=== PATIENT | male | born 1930 | race Caucasian/White ===

== ENCOUNTER 2019-10-06 09:01 | Inpatient (IN) ==
--- NOTE | 2019-10-03 10:11 | Anesthesiology Consultation ---
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 Consults Requested none History Surgery Operation Date: 10/06/19 10:00 Proposed Procedures p Esophagogastroduodenoscopy Dr Easley - Jennifer Easley MD Height/Weight Height: 5 ft 2 in Weight: 42.638 kg Allergies Allergy/AdvReac Type Severity Reaction Status Date / Time No Known Allergies Allergy Verified 10/06/19 09:22 Medications Home Medications Medication Instructions Recorded Confirmed Last Taken levothyroxine 50 mcg PO QAM 10/03/19 10/06/19 10/05/19 multivitamin 1 tab PO QPM 10/03/19 10/06/19 10/05/19 Past Medical History Medical History Arthritis Hypothyroidism Past Surgical History Surgical History No history of previous surgery Social History Smoking Status: Former smoker Do You Dip or Chew Tobacco: No (QUIT) Smoking End Date: QUIT 30 YRS AGO Hx Alcohol Use: Yes Alcohol type: beer alcohol intake frequency: holidays/special occasions only Hx Substance Use: No Physical Exam Vital Signs Last Vital Signs Temp 36.8 C 10/06/19 09:24 Pulse 63 10/06/19 09:24 Resp 16 10/06/19 09:24 BP 139/75 10/06/19 09:24 Pulse Ox 99 10/06/19 09:24
[2019-10-06] MEDS ORDERED: ePHEDrine sulfate 50 MG/ML AMP IV PRN (10:07)
[2019-10-06] MEDS ORDERED: ATROPINE SULFATE 0.1 MG/ML 10ML SYR IV PRN (10:07)
--- NOTE | 2019-10-06 10:07 | History & Physical Report ---
Date of Service October 06, 2019 Assessment & Plan (1) Encounter for pre-operative examination: History of Present Illness Primary Care Provider: Santiago Mooney MD Abnormal CT scan suspicious for esophageal cancer Allergies Allergy/AdvReac Type Severity Reaction Status Date / Time No Known Allergies Allergy Verified 10/06/19 09:22 Home Medications Home Medications Medication Instructions Recorded Confirmed Type levothyroxine 50 mcg PO QAM 10/03/19 10/06/19 History multivitamin 1 tab PO QPM 10/03/19 10/06/19 History Past Med/Surg History Medical History Arthritis Hypothyroidism Surgical History No history of previous surgery Social History Preferred Language: Albanian Communication Ability: Effective 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 Required: No Beliefs That Will Affect Care: None Current Living Situation: Alone Other Information That Helps Us Care for You: No Feels Safe at Home: Yes Smoking Status: Former smoker Do You Dip or Chew Tobacco: No (QUIT) ; Smoking End Date: QUIT 30 YRS AGO ; Second Hand Exposure: Yes (OVER THE YRS) ; Hx Alcohol Use: Yes Alcohol type: beer Hx Substance Use: No Review of Systems All systems reviewed & are unremarkable except as noted in HPI & below Physical Exam Constitutional: comfortable; no acute distress Respiratory: normal respiratory effort, lungs clear to auscultation Cardiovascular: RRR, no murmur, no edema Gastrointestinal (Abdomen): normal bowel sounds, soft, nontender, no hepatosplenomegaly Results & Data Vital Signs (Past 12 Hours) Vital Signs Temp Pulse Resp BP Pulse Ox 10/06/19 09:24 36.8 C 63 16 139/75 99
--- NOTE | 2019-10-06 11:24 | Anesthesiology Progress Note ---
Date of Service October 06, 2019 Anesthesia Post Procedure Vital Signs Vital Signs: Temp Pulse Resp BP Pulse Ox 10/06/19 11:13 65 16 159/77 H 100 10/06/19 10:58 63 16 143/76 H 100 10/06/19 10:43 64 16 129/68 100 10/06/19 09:24 36.8 C 63 16 139/75 99 Transfer of Care Handoff Completed per policy Notes Mental Status: alert / awake / arousable Patient Amnestic to Procedure: Yes Nausea / Vomiting: adequately controlled Pain: adequately controlled Airway Patency, RR, SpO2: stable & adequate BP & HR: stable & adequate Hydration State: stable & adequate Anesthetic Complications: no major complications apparent and Pt Satisfied with anesthetic care
--- NOTE | 2019-10-06 11:33 | Gastrointestinal Consultation ---
Date of Consultation October 06, 2019 Assessment & Plan (1) Esophageal mass: 89 year old male w/ weight loss, CTAP concerning for mural thickening of the distal esophagus w/ adjacent adenopathy, concerning for esophageal carcinoma s/p EGD w/ visualization of obstructive eso mass Admit for further workup Clear liquids today NPO after midnight EGD in the OR 10/07/19 for esophgeal stent +/- PEG Thank you for allowing us to participate in the care of this patient. Please call with any acute changes, questions or concerns. Please see addendum below with additional recommendation from my supervising physician. Supervising Physician Co-Signing Physician Notes I performed a history and physical examination of the patient, including specifically on physical exam - soft, nontender abdomen. I have discussed the patient's management with Renee. Please refer to the nurse practitioner's note for the documented findings and plan of care. EGD showed esophageal mass with bleeding and obstruction, biopsied. He will benefit from an esophageal stent and possible PEG as he also has narrowing of his UES. I spoke to patient and his daughter and they agreed. Plan for EGD tomorrow. History of Present Illness Reason for Consultation: eso mass Requesting Physician: Tracee Attending Physician: Jennifer Easley MD History of Present Illness 89 year old male with history of CKD, hypothyroidism presenting for open access EGD today for abnormal CT scan concerning for irregular mural thickening of the distal esophagus adjacent adenopathy, concerning for esophageal carcinoma, gastrohepatic mass concerning for a necrotic lymph node measuring up to 5.0 centimeters in greatest diameter. He had noted a weight loss and vague UGI concerns. EGD today w/ obstructive esophageal mass. Allergies Allergy/AdvReac Type Severity Reaction Status Date / Time No Known Allergies Allergy Verified 10/06/19 09:22 Home Medications Home Medications Medication Instructions Recorded Confirmed Type levothyroxine 50 mcg PO QAM 10/03/19 10/06/19 History multivitamin 1 tab PO QPM 10/03/19 10/06/19 History Patient History Medical History (Updated 10/06/19 @ 11:31 by Renee Perez) Arthritis Esophageal mass Hypothyroidism Surgical History No history of previous surgery Social History Preferred Language: Maltese Communication Ability: Effective Sane Rn Required: No Beliefs That Will Affect Care: None Current Living Situation: Alone Other Information That Helps Us Care for You: No Feels Safe at Home: Yes Smoking Status: Former smoker Do You Dip or Chew Tobacco: No (QUIT) ; Smoking End Date: QUIT 30 YRS AGO ; Second Hand Exposure: Yes (OVER THE YRS) ; Hx Alcohol Use: Yes Alcohol type: beer Hx Substance Use: No Review of Systems Constitutional: no fever and no chills Respiratory: no cough Cardiovascular: no chest pain Gastrointestinal: no abdominal pain, no nausea and no vomiting Physical Exam Constitutional: well developed and well nourished; no acute distress Respiratory: normal respiratory effort; no respiratory distress Gastrointestinal (Abdomen): Percussion/Palpation: abdomen soft Skin: no rashes, warm and dry Results & Data Vital Signs (Past 12 Hours) Vital Signs Temp Pulse Resp BP Pulse Ox 10/06/19 11:13 65 16 159/77 H 100 10/06/19 10:58 63 16 143/76 H 100 10/06/19 10:43 64 16 129/68 100 10/06/19 09:24 36.8 C 63 16 139/75 99
[2019-10-06] MEDS ORDERED: ONDANSETRON INJ 2 MG/ML 2 ML VIAL IV PRN (11:43)
[2019-10-06] MEDS ORDERED: ACETAMINOPHEN 325 MG TAB PO PRN (11:43)
[2019-10-06] MEDS ORDERED: ALUMINUM/MAGNESIUM SUSP 30 ML UDC PO PRN (11:43)
[2019-10-06] MEDS ORDERED: POLYETHYLENE (MIRALAX) 17 GM PACK PO PRN (11:43)
[2019-10-06] MEDS ORDERED: MAGNESIUM HYDROXIDE SUSP 30 ML UDC PO PRN (11:43)
--- NOTE | 2019-10-06 11:44 | GI REPORT ---
Patient Name: Krunal Ta Procedure Date: 10/06/2019 10:04 AM Date of : 1930 Admit Type: Outpatient Age: 89 Gender: Male Attending MD: Jennifer Easley MD Procedure: Upper GI endoscopy Providers: Jennifer Easley MD Referring MD: Santiago Dalton Indications: Dysphagia, Weight loss Medicines: Propofol per Anesthesia Complications: No immediate complications. Estimated Blood Loss: Estimated blood loss: none. Procedure: Pre-Anesthesia Assessment: - Prior to the procedure, a History and Physical was performed, and patient medications, allergies and sensitivities were reviewed. The patient's tolerance of previous anesthesia was reviewed. - The risks and benefits of the procedure and the sedation options and risks were discussed with the patient. All questions were answered and informed consent was obtained. - Patient identification and proposed procedure were verified prior to the procedure by the physician and the nurse. The procedure was verified in the procedure room. - Pre-procedure physical examination revealed no contraindications to sedation. After obtaining informed consent, the endoscope was passed under direct vision. Throughout the procedure, the patient's blood pressure, pulse, and oxygen saturations were monitored continuously. The Scope was introduced through the mouth, and advanced to the second part of duodenum. The upper GI endoscopy was accomplished without difficulty. The patient tolerated the procedure well. Findings: Narrowing of the UES and the regular adult gastroscope could not pass. The stenosis was traversed after downsizing scope and using XP scope. The Z-line was found 39 cm from the incisors. A large, fungating and ulcerating mass with spontaneous bleeding was found in the lower third of the esophagus, 31 to 39 cm from the incisors. The mass was completely obstructing and circumferential. Biopsies were taken with a cold forceps for histology. Verification of patient identification for the specimen was done by the physician using the patient's name and date. The entire examined stomach was normal. The tumor does not involve the cardia. The duodenal bulb and second portion of the duodenum were normal. 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 Biopsied. - Narrowing of the UES area. Only XP scope can pass. - Z-line, 39 cm from the incisors. - Normal stomach. - Normal duodenal bulb and second portion of the duodenum. Recommendation: - I will discuss with family to admit the patient and plan for Esophageal stent placement +/- PEG tomorrow as this is a high risk for bleeding type of tumor and patient has dehydration and FTT. There is LN involvement on CT scan. Would not be able to perform EUS due to severe stenosis. Overall, patient does not seem to be a candidate for surgery or advanced chemotherapy. - Clear liquid diet. - Await pathology results. - Return to referring physician. Jennifer Easley MD 10/06/2019 11:43:56 AM This report has been signed electronically. Note Initiated On: 10/06/2019 10:04 AM Number of Addenda: 0 I attest to the content of the Intraoperative Record and orders documented therein, exceptions below {[id number]}
[2019-10-06 14:00] LABS: Basophils # (auto) 0.05 K/uL (0-0.2); Basophils % (auto) 0.4 %; Eosinophils # (auto) 0.12 K/uL (0-0.5); Hematocrit (blood only) 25.8 % (42-52); Hemoglobin 8.5 g/dL (14.0-18.0); Immature Granulocytes # (auto) 0.02 K/uL (0.00-0.02); Immature Granulocytes % (auto) 0.2 %; Lymphocytes # (auto) 4.67 K/uL (1.2-3.4); Lymphocytes % (auto) 39.7 %; Mean Corpuscular Hgb Conc 32.9 g/dL (32-36); Mean Corpuscular Volume 91.2 fL (80-100); Mean Platelet Volume 8.2 fL (7.4-10.4); Monocytes # (auto) 0.98 K/uL (0.11-0.59); Monocytes % (auto) 8.3 %; Neutrophils # (auto) 5.92 K/uL (1.4-6.5); Neutrophils % (auto) 50.4 %; Platelet Count 317 K/uL (130-400); RDW Coefficient of Variation 14.2 % (11.5-14.5); RDW Standard Deviation 47.8 fL (36.4-46.3); Red Blood Count 2.83 M/uL (4.7-6.1); White Blood Count 11.76 K/uL (4.8-10.8)
[2019-10-06 14:18] LABS: Albumin Level 2.2 gm/dl (3.4-5.0); BUN Creatinine Ratio 18.4 (10-20); Calcium 8.5 mg/dl (8.5-10.1); Creatinine Clr Calc Pharmacy 22.6 ml/min; Est GFR (African American) 52.2
--- NOTE | 2019-10-06 14:20 | History & Physical Report ---
Date of Service October 06, 2019 Assessment & Plan (1) Esophageal mass: This is an 89-year-old male with significant PMH of hypothyroidism, CKD stage III baseline creatinine 1.7, anemia who presents to [facility] for elective EGD secondary to abnormal outpatient CT scan abdomen pelvis concerning for esophageal mass. Patient is a direct admission from GI service secondary to abnormal findings on EGD. 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 Pt admitted to med/surg clear liquid diet, NPO after midnight GI service on board EGD with stent +/- peg tube tomorrow ekg and cxr ordered labs ordered and reviewed anemia apparently likely from chronic blood loss from esophageal mass trend h/h anemia panel pending (2) Adult failure to thrive: Weight 44.1kg Consult dietitian add nutritional supplement once off clear liquids (3) Hypothyroidism: Continue levothyroxine (4) CKD (chronic kidney disease) stage 3, GFR 30-59 ml/min: baseline cr 1.7 bun/cr 25 and 1.38 today pt appears dry and dehydrated place on IVF 80cc/hr x 2L repeat labs in a.m. (5) Anemia: previous H/H 12/12/ 10.5/32.5 H/H now 8.5/25.8 Anemia likely in setting of chronic blood loss due to esophageal tumor Obtain iron panel, folic acid, vitamin B12 (6) DVT prophylaxis: SCD/TEDS Chemical prophylaxis contraindicated in setting of anemia and current esophageal tumor disposition: admit to med/surg Follow up: PCP Dr. Mooney upon discharge Pt was seen and examined in collaboration with Dr. Mendiola, please see addendum History of Present Illness Chief Complaint: Abnormal EGD, failure to thrive. Primary Care Provider: Santiago Mooney MD This is an 89-year-old male with significant PMH of hypothyroidism, CKD stage III baseline creatinine 1.7, anemia who presents to [facility] for elective EGD secondary to abnormal outpatient CT scan abdomen pelvis concerning for esophageal mass. Patient is a direct admission from GI service secondary to abnormal findings on EGD. 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 Plan per GI is esophageal stent placement plus or minus PEG tomorrow, 10/07/2019. Overall patient feels, "okay." "I cannot eat anything. ""I am only 90 pounds." He states over the past several months he has been having dysphasia with solid foods and 20 pound weight loss. This along with a new anemia was investigated and found to have abnormal CT scan of abdomen pelvis. Overall has poor appetite. Is able to tolerate liquids without difficulty. Denies fever, chills, sweats, lightheadedness, dizziness, chest pain, shortness of breath, nausea, vomiting, abdominal pain, change in bowel or urinary habits, melena, hematochezia. Allergies Allergy/AdvReac Type Severity Reaction Status Date / Time No Known Allergies Allergy Verified 10/06/19 09:22 Home Medications Home Medications Medication Instructions Recorded Confirmed Type levothyroxine 50 mcg PO QAM 10/03/19 10/06/19 History multivitamin 1 tab PO QPM 10/03/19 10/06/19 History Past Med/Surg History Medical History (Updated 10/06/19 @ 17:11 by Frank Alvarado MD) Anemia Arthritis CKD (chronic kidney disease) stage 3, GFR 30-59 ml/min Esophageal mass Failure to thrive Hypothyroidism Weight loss Surgical History (Updated 10/06/19 @ 17:07 by Frank Alvarado MD) History of esophagogastroduodenoscopy (EGD) 10/06/19 MAC anesthesia Social History Preferred Language: Irish Communication Ability: Effective Senior Interaction Designer Required: No Beliefs That Will Affect Care: None Current Living Situation: Alone Other Information That Helps Us Care for You: No Feels Safe at Home: Yes Smoking Status: Former smoker Do You Dip or Chew Tobacco: No (QUIT) ; Smoking End Date: QUIT 30 YRS AGO ; Second Hand Exposure: Yes (OVER THE YRS) ; Hx Alcohol Use: Yes Alcohol type: beer Alcohol Intake Frequency: Rarely Hx Substance Use: No Review of Systems Review of Systems: All systems reviewed & are unremarkable except as noted in HPI & below Physical Exam Physical Exam: Constitutional: Thin, cachectic, elderly, male, lying in bed, vitals as above, NAD, conversing easily Head: Normocephalic, Atraumatic, b/l temporal wasting Eyes: PERRL, conjunctivae normal, anicteric sclerae ENMT: external ear and nose normal, oropharynx dry mucous membranes Neck: trachea midline, no thyromegaly normal visual inspection Respiratory: normal respiratory effort, lungs clear to auscultation, no wheeze, rales, rhonchi. Normal insp/exp effort, no accessory muscle use Cardiovascular: RRR, no murmur, no edema Vessels: no JVD or carotid bruit Chest: normal inspection of chest, cachexia Abdomen: normal bowel sounds, soft, nontender, no hepatosplenomegaly Musculoskeletal: no cyanosis or clubbing, extremities motor strength 5/5 Skin: no rashes, warm and dry normal turgor Neurologic: PERRL, EOMI, accommodation nl, no face palsy, no dysarthria CN's II-XI intact bilaterally and moves all extremities Psychiatric: A+Ox3, euthymic affect Lymphatic: no cervical or axillary lymphadenopathy : deferred Results & Data Vital Signs (Past 12 Hours) Vital Signs Temp Pulse Resp BP Pulse Ox 10/06/19 13:32 36.4 C L 60 20 176/80 H 97 10/06/19 13:01 36.4 C L 65 18 161/68 H 99 10/06/19 12:33 36.6 C 68 16 166/81 H 99 10/06/19 11:13 65 16 159/77 H 100 10/06/19 10:58 63 16 143/76 H 100 10/06/19 10:43 64 16 129/68 100 10/06/19 09:24 36.8 C 63 16 139/75 99 Laboratory Results Short CBC 10/06/19 10/06/19 Range/Units 13:52 13:52 WBC 11.76 H (4.8-10.8) K/uL Hgb 8.5 L (14.0-18.0) g/dL Hct 25.8 L (42-52) % Plt Count 317 (130-400) K/uL BUN 25 H (7-18) mg/dl Creatinine 1.38 (0.6-1.4) mg/dl BMP 10/06/19 13:52 Sodium 138 Potassium 4.0 Chloride 106 Carbon Dioxide 30 BUN 25 H Creatinine 1.38 Glucose 90 Calcium 8.5 Liver Function 10/06/19 Range/Units 13:52 Total Bilirubin 0.2 (0.2-1) mg/dl AST 22 (15-37) U/L ALT 9 L (12-78) U/L Alkaline Phosphatase 57 (45-117) U/L Albumin 2.2 L (3.4-5.0) gm/dl Diagnostic Findings EGD: obstructing 8cm likely malignant tumor extending to mid to lower distal esophagus Medications Administered Sodium Chloride (Nss 1000ml) 1,000 mls @ 80 mls/hr IV .[id number] Stop: 10/07/19 15:29 Last Admin: 10/06/19 14:28 Dose: 80 mls/hr Documented by: [id number] ECG Rate (beats per minute): 62 Rhythm: normal sinus Findings: + LAFB Code Status & VTE Plan Code Status Full Code VTE Prophylaxis Plan VTE Prophylaxis will be ordered: Yes Reason for no VTE drug order: Contraindicated Supervising Physician Co-Signing Physician Notes Attending Addendum: care coordinated with CRISTOBAL Fitzgerald please refer to her notes for full details, I agree with her notes patient seen and examined, records reviewed by myself as well on exam, patient seen sleeping but easily awakened states he feels fine overall denies abdominal pain, nausea, chest pain, nausea states he walks around at home with a walker, no unusual dyspnea, chest pain no other symptoms VS noted and reviewed oriented x 2, not in distress, speaks in sentences with no effort nor accessory muscle use normal rate, regular rhythm, no murmurs clear breath sounds bilaterally non distended, soft, nontender no bipedal edema, erythema, warmth no neuro deficits WBC 11.7 Hg 8.5 Crea 1.38 CXR: no effusion, infiltrate EKG no signs of acute ischemia or infarct ASSESSMENT AND PLAN OBSTRUCTING ESOPHAGEAL MASS biopsy pending clear liquids, NPO after midnight for esophageal stent placement, possible PEG tube placement in AM no medical contraindications to proceed with above procedures ANEMIA anemia panel pending other diagnoses and plan of care as per CRISTOBAL Quintana's notes Champ Mendiola MD
[2019-10-06 14:21] LABS: Albumin Globulin Ratio 0.5 (0.9-2); Bilirubin,Total 0.2 mg/dl (0.2-1); Globulin 4.8 gm/dl (2.5-4.0)
[2019-10-06] MEDS: SODIUM CHLORIDE 0.9% 1000ML 1,000 ML IV SCH (14:28)
[2019-10-06 15:03] LABS: Ferritin 104.1 ng/ml (8-388)
--- NOTE | 2019-10-06 15:17 | XRay Report ---
XR chest 1V portable CLINICAL HISTORY: preop COMPARISON STUDY: No previous studies for comparison. FINDINGS: Study is mildly rotated. The heart is normal in size. There is aortic tortuosity. There is no failure. There is mild left basilar interstitial thickening, likely chronic. There is no lobar con solidation. There are no significant pleural effusions.[ IMPRESSION: No active disease in the chest. ACT 112: Negative or not required by law. Electronically signed by: Gerald Cheng M.D. 10/06/2019 3:16 PM
--- NOTE | 2019-10-06 17:09 | Anesthesiology Consultation ---
Date of Service October 06, 2019 The patient has been losing weight and not eating likely due to an esophageal mass. He tolerated an EGD today under MAC anesthesia. He is anemic with hgb of 8.5 so a type and screen has been ordered. Assessment & Plan (1) Encounter for pre-operative examination: Chart Review Chart Review: Acceptable Risk for Surgery and Patient NOT seen in Pre Admission Testing Consults Requested none medicine is following History Surgery Operation Date: 10/06/19 10:00 Proposed Procedures p Esophagogastroduodenoscopy Dr Easley - Jennifer Easley MD Operation Date: 10/07/19 07:30 Proposed Procedures p Esophagogastroduodenoscopy with - Jennifer Easley MD s PEG Tube Placement and Stent Placement - Jennifer Easley MD Height/Weight Height: 5 ft 4 in Weight: 44.1 kg Allergies Allergy/AdvReac Type Severity Reaction Status Date / Time No Known Allergies Allergy Verified 10/06/19 09:22 Medications Home Medications Medication Instructions Recorded Confirmed Last Taken levothyroxine 50 mcg PO QAM 10/03/19 10/06/19 10/05/19 multivitamin 1 tab PO QPM 10/03/19 10/06/19 10/05/19 Active Medications Generic Name Dose Route Start Last Admin Trade Name Freq PRN Reason Stop Dose Admin Sodium Chloride 1,000 mls @ 80 mls/hr 10/06/19 14:30 10/06/19 14:28 Nss 1000ml IV 10/07/19 15:29 80 mls/hr .[id number] TYRA Administration NPO Date Last Intake of Fluids: 10/05/19 Time Last Intake of Fluids: 20:00 Date Last Intake of Solids: 10/05/19 Time Last Intake of Solids: 13:00 Past Medical History Medical History (Updated 10/06/19 @ 17:11 by Frank Alvarado MD) Anemia Arthritis CKD (chronic kidney disease) stage 3, GFR 30-59 ml/min Esophageal mass Failure to thrive Hypothyroidism Weight loss Past Surgical History Surgical History (Updated 10/06/19 @ 17:07 by Frank Alvarado MD) History of esophagogastroduodenoscopy (EGD) 10/06/19 MAC anesthesia Social History Smoking Status: Former smoker Do You Dip or Chew Tobacco: No (QUIT) Smoking End Date: QUIT 30 YRS AGO Hx Alcohol Use: Yes Alcohol type: beer alcohol intake frequency: holidays/special occasions only Hx Substance Use: No Physical Exam Vital Signs Last Vital Signs Temp 36.9 C 10/06/19 15:30 Pulse 58 L 10/06/19 15:30 Resp 16 10/06/19 15:30 BP 152/72 H 10/06/19 15:30 Pulse Ox 98 10/06/19 15:30 Testing Laboratory Results 10/06/19 13:52 10/06/19 13:52 Electrocardiogram Date: 10/06/19 Findings: + NSR @ (62) and + 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 FINDINGS: Study is mildly rotated. The heart is normal in size. There is aortic tortuosity. There is no failure. There is mild left basilar interstitial thickening, likely chronic. There is no lobar consolidation. There are no sign ificant pleural effusions.[ IMPRESSION: No active disease in the chest. ACT 112: Negative or not required by law. Electronically signed by: Gerald Cheng M.D. 10/06/2019 3:16 PM Dictated: 10/06/19 1515 Transcribed: 10/06/19 1515
[2019-10-07] MEDS: SODIUM CHLORIDE 0.9% 1000ML 1,000 ML IV SCH (03:03)
[2019-10-07] MEDS: LEVOTHYROXINE SODIUM 50 MCG TABLET PO SCH (04:50)
[2019-10-07 05:54] LABS: Basophils # (auto) 0.06 K/uL (0-0.2); Basophils % (auto) 0.6 %; Eosinophils # (auto) 0.11 K/uL (0-0.5); Hematocrit (blood only) 24.7 % (42-52); Hemoglobin 8.2 g/dL (14.0-18.0); Immature Granulocytes # (auto) 0.02 K/uL (0.00-0.02); Immature Granulocytes % (auto) 0.2 %; Lymphocytes # (auto) 3.94 K/uL (1.2-3.4); Lymphocytes % (auto) 36.5 %; Mean Corpuscular Hemoglobin 30.4 pg (25-34); Mean Corpuscular Hgb Conc 33.2 g/dL (32-36); Mean Corpuscular Volume 91.5 fL (80-100); Mean Platelet Volume 8.3 fL (7.4-10.4); Monocytes # (auto) 0.88 K/uL (0.11-0.59); Monocytes % (auto) 8.2 %; Neutrophils # (auto) 5.77 K/uL (1.4-6.5); Neutrophils % (auto) 53.5 %; Platelet Count 308 K/uL (130-400); RDW Coefficient of Variation 14.4 % (11.5-14.5); RDW Standard Deviation 48.3 fL (36.4-46.3); White Blood Count 10.78 K/uL (4.8-10.8)
--- NOTE | 2019-10-07 06:01 | Electrocardiogram Report ---
Test Reason : Blood Pressure : / mmHG Vent. Rate : 062 BPM Atrial Rate : 062 BPM P-R Int : 188 ms QRS Dur : 088 ms QT Int : 420 ms P-R-T Axes : 078 -55 011 degrees QTc Int : 426 ms Normal sinus rhythm Left anterior fascicular block Septal infarct , age undetermined Abnormal ECG No previous ECGs available Confirmed by Ricardo Martinez ([id number]) on 10/07/2019 6:01:46 AM Referred By: Essence Sharp Confirmed By:Ricardo Martinez
[2019-10-07 06:32] LABS: BUN Creatinine Ratio 19.4 (10-20); Creatinine Clr Calc Pharmacy 27.9 ml/min; Est GFR (African American) 67.1; Est GFR (Non-African American) 57.9; Magnesium 1.9 mg/dl (1.8-2.4); Potassium 3.9 mmol/L (3.5-5.1)
[2019-10-07 06:34] LABS: Albumin Globulin Ratio 0.5 (0.9-2); Bilirubin,Total 0.2 mg/dl (0.2-1); Globulin 4.3 gm/dl (2.5-4.0); Total Protein 6.3 gm/dl (6.4-8.2)
--- NOTE | 2019-10-07 07:32 | Gastroenterology Progress Note ---
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 NPO EGD in the OR today for esophageal stent +/- PEG Thank you for allowing us to participate in the care of this patient. Please call with any acute changes, questions or concerns. Please see addendum below with additional recommendation from my supervising physician. Supervising Physician Co-Signing Physician Notes I performed a history and physical examination of the patient, including specifically on physical exam - soft, nontender abdomen. I have discussed the patient's management with Renee. Please refer to the nurse practitioner's note for the documented findings and plan of care. EGD with eso stent Subjective Pt was seen and evaluated, chart reviewed No acute complaints NPO for EGD w/ stenting +/- PEG today Moves bowels this AM he is unsure if he has passed any black or bloody stools No fever, chills, CP, SOB No UGI symptoms Review of Systems Constitutional: no fever and no chills Respiratory: no cough and no dyspnea Cardiovascular: no chest pain Gastrointestinal: no abdominal pain, no nausea and no vomiting Physical Exam Constitutional: well developed and well nourished; no acute distress Respiratory: normal respiratory effort; no respiratory distress Gastrointestinal (Abdomen): Percussion/Palpation: abdomen soft Skin: no rashes, warm and dry Results & Data Vital Signs (Past 12 Hours) Vital Signs Temp Pulse Resp BP Pulse Ox 10/06/19 23:45 36.7 C 61 16 150/73 H 98 10/06/19 19:33 36.5 C 56 L 16 153/65 H 99 Laboratory Results 10/07/19 10/07/19 10/06/19 Range/Units 05:40 05:40 17:35 WBC 10.78 (4.8-10.8) K/uL RBC 2.70 L (4.7-6.1) M/uL Hgb 8.2 L (14.0-18.0) g/dL Hct 24.7 L (42-52) % MCV 91.5 (80-100) fL MCH 30.4 (25-34) pg MCHC 33.2 (32-36) g/dL RDW Std Deviation 48.3 H (36.4-46.3) fL RDW Coeff of Evan 14.4 (11.5-14.5) % Plt Count 308 (130-400) K/uL MPV 8.3 (7.4-10.4) fL Immature Gran % (Auto) 0.2 % Neut % (Auto) 53.5 % Lymph % (Auto) 36.5 % [place] % (Auto) 8.2 % Eos % (Auto) 1.0 % Baso % (Auto) 0.6 % Immature Gran # (Auto) 0.02 (0.00-0.02) K/uL Neut # (Auto) 5.77 (1.4-6.5) K/uL Lymph # (Auto) 3.94 H (1.2-3.4) K/uL [place] # (Auto) 0.88 H (0.11-0.59) K/uL Eos # (Auto) 0.11 (0-0.5) K/uL Baso # (Auto) 0.06 (0-0.2) K/uL Sodium 139 (136-145) mmol/L Potassium 3.9 (3.5-5.1) mmol/L Chloride 109 H (98-107) mmol/L Carbon Dioxide 26 (21-32) mmol/L Anion Gap 4.0 (3-11) BUN 22 H (7-18) mg/dl Creatinine 1.12 (0.6-1.4) mg/dl Est Cr Clr Drug Dosing 27.9 ml/min Est GFR ( Amer) 67.1 Est GFR (Non-Af Amer) 57.9 BUN/Creatinine Ratio 19.4 (10-20) Glucose 82 (70-99) mg/dl Calcium 8.0 L (8.5-10.1) mg/dl Magnesium 1.9 (1.8-2.4) mg/dl Iron (35-175) mcg/dl TIBC (250-450) mcg/dl Transferrin (200-360) mg/dl Ferritin (8-388) ng/ml Total Bilirubin 0.2 (0.2-1) mg/dl AST 22 (15-37) U/L ALT 8 L (12-78) U/L Alkaline Phosphatase 51 (45-117) U/L Total Protein 6.3 L (6.4-8.2) gm/dl Albumin 2.0 L (3.4-5.0) gm/dl Globulin 4.3 H (2.5-4.0) gm/dl Albumin/Globulin Ratio 0.5 L (0.9-2) Vitamin B12 (211-911) pg/ml Folate (>5.38) ng/ml Blood Type O Positive Antibody Screen NEGATIVE 10/06/19 10/06/19 10/06/19 Range/Units 14:20 14:20 14:20 WBC (4.8-10.8) K/uL RBC (4.7-6.1) M/uL Hgb (14.0-18.0) g/dL Hct (42-52) % MCV (80-100) fL MCH (25-34) pg MCHC (32-36) g/dL RDW Std Deviation (36.4-46.3) fL RDW Coeff of Evan (11.5-14.5) % Plt Count (130-400) K/uL MPV (7.4-10.4) fL Immature Gran % (Auto) % Neut % (Auto) % Lymph % (Auto) % [place] % (Auto) % Eos % (Auto) % Baso % (Auto) % Immature Gran # (Auto) (0.00-0.02) K/uL Neut # (Auto) (1.4-6.5) K/uL Lymph # (Auto) (1.2-3.4) K/uL [place] # (Auto) (0.11-0.59) K/uL Eos # (Auto) (0-0.5) K/uL Baso # (Auto) (0-0.2) K/uL Sodium (136-145) mmol/L Potassium (3.5-5.1) mmol/L Chloride (98-107) mmol/L Carbon Dioxide (21-32) mmol/L Anion Gap (3-11) BUN (7-18) mg/dl Creatinine (0.6-1.4) mg/dl Est Cr Clr Drug Dosing ml/min Est GFR ( Amer) Est GFR (Non-Af Amer) BUN/Creatinine Ratio (10-20) Glucose (70-99) mg/dl Calcium (8.5-10.1) mg/dl Magnesium (1.8-2.4) mg/dl Iron Cancelled 25 L (35-175) mcg/dl TIBC 224 L (250-450) mcg/dl Transferrin 173 L (200-360) mg/dl Ferritin 104.1 (8-388) ng/ml Total Bilirubin (0.2-1) mg/dl AST (15-37) U/L ALT (12-78) U/L Alkaline Phosphatase (45-117) U/L Total Protein (6.4-8.2) gm/dl Albumin (3.4-5.0) gm/dl Globulin (2.5-4.0) gm/dl Albumin/Globulin Ratio (0.9-2) Vitamin B12 523 (211-911) pg/ml Folate (>5.38) ng/ml Blood Type Antibody Screen 10/06/19 10/06/19 10/06/19 Range/Units 14:20 13:52 13:52 WBC 11.76 H (4.8-10.8) K/uL RBC 2.83 L (4.7-6.1) M/uL Hgb 8.5 L (14.0-18.0) g/dL Hct 25.8 L (42-52) % MCV 91.2 (80-100) fL MCH 30.0 (25-34) pg MCHC 32.9 (32-36) g/dL RDW Std Deviation 47.8 H (36.4-46.3) fL RDW Coeff of Evan 14.2 (11.5-14.5) % Plt Count 317 (130-400) K/uL MPV 8.2 (7.4-10.4) fL Immature Gran % (Auto) 0.2 % Neut % (Auto) 50.4 % Lymph % (Auto) 39.7 % [place] % (Auto) 8.3 % Eos % (Auto) 1.0 % Baso % (Auto) 0.4 % Immature Gran # (Auto) 0.02 (0.00-0.02) K/uL Neut # (Auto) 5.92 (1.4-6.5) K/uL Lymph # (Auto) 4.67 H (1.2-3.4) K/uL [place] # (Auto) 0.98 H (0.11-0.59) K/uL Eos # (Auto) 0.12 (0-0.5) K/uL Baso # (Auto) 0.05 (0-0.2) K/uL Sodium 138 (136-145) mmol/L Potassium 4.0 (3.5-5.1) mmol/L Chloride 106 (98-107) mmol/L Carbon Dioxide 30 (21-32) mmol/L Anion Gap 2.0 L (3-11) BUN 25 H (7-18) mg/dl Creatinine 1.38 (0.6-1.4) mg/dl Est Cr Clr Drug Dosing 22.6 ml/min Est GFR ( Amer) 52.2 Est GFR (Non-Af Amer) 45.0 BUN/Creatinine Ratio 18.4 (10-20) Glucose 90 (70-99) mg/dl Calcium 8.5 (8.5-10.1) mg/dl Magnesium (1.8-2.4) mg/dl Iron (35-175) mcg/dl TIBC (250-450) mcg/dl Transferrin (200-360) mg/dl Ferritin (8-388) ng/ml Total Bilirubin 0.2 (0.2-1) mg/dl AST 22 (15-37) U/L ALT 9 L (12-78) U/L Alkaline Phosphatase 57 (45-117) U/L Total Protein 7.0 (6.4-8.2) gm/dl Albumin 2.2 L (3.4-5.0) gm/dl Globulin 4.8 H (2.5-4.0) gm/dl Albumin/Globulin Ratio 0.5 L (0.9-2) Vitamin B12 (211-911) pg/ml Folate 16.62 (>5.38) ng/ml Blood Type Antibody Screen
--- NOTE | 2019-10-07 08:15 | Anesthesiology Progress Note ---
Date of Service October 07, 2019 Anesthesia Post Procedure Vital Signs Vital Signs: Temp Pulse Resp BP Pulse Ox 10/06/19 23:45 36.7 C 61 16 150/73 H 98 10/06/19 19:33 36.5 C 56 L 16 153/65 H 99 10/06/19 15:30 36.9 C 58 L 16 152/72 H 98 10/06/19 14:58 36.5 C 62 18 143/77 H 98 10/06/19 14:35 36.4 C L 63 20 169/77 H 97 10/06/19 14:00 36.6 C 61 18 155/79 H 97 10/06/19 13:32 36.4 C L 60 20 176/80 H 97 10/06/19 13:01 36.4 C L 65 18 161/68 H 99 10/06/19 12:33 36.6 C 68 16 166/81 H 99 10/06/19 11:13 65 16 159/77 H 100 10/06/19 10:58 63 16 143/76 H 100 10/06/19 10:43 64 16 129/68 100 10/06/19 09:24 36.8 C 63 16 139/75 99 Notes Mental Status: alert / awake / arousable and participated in evaluation Patient Amnestic to Procedure: Yes Nausea / Vomiting: adequately controlled Pain: adequately controlled Airway Patency, RR, SpO2: stable & adequate BP & HR: stable & adequate Hydration State: stable & adequate Anesthetic Complications: no major complications apparent and Pt Satisfied with anesthetic care
[2019-10-07] MEDS ORDERED: ATROPINE SULFATE 0.1 MG/ML 10ML SYR IV PRN (15:37)
[2019-10-07] MEDS ORDERED: ONDANSETRON INJ 2 MG/ML 2 ML VIAL IV PRN (15:37)
[2019-10-07] MEDS ORDERED: fentaNYL citrate 100 MCG/2 ML VIAL IV PRN (15:37)
[2019-10-07] MEDS ORDERED: PROPOFOL IV EMULSION 10 MG/ML 20 ML VIAL IV ONE ×2 (15:49→17:27)
[2019-10-07] MEDS ORDERED: LIDOCAINE HCL 2% 2 ML VIAL/AMP(20MG/ML) INFIL ONE (15:49)
--- NOTE | 2019-10-07 15:49 | History & Physical Bridge Note ---
Date of Service October 07, 2019 History & Physical Bridge Note I have examined the patient, reviewed the History & Physical and in the interval since the performance of the History & Physical I have noted the following changes of clinical significance: no changes noted
[2019-10-07] MEDS ORDERED: fentaNYL citrate 100 MCG/2 ML VIAL ONE (15:50)
[2019-10-07] MEDS ORDERED: CEFAZOLIN 250 MG/ML 1 GM VIAL ONE (16:48)
[2019-10-07] MEDS ORDERED: CEFAZOLIN 1000MG 1,000 MG/7.5 ML SYR IV ONE (16:52)
--- NOTE | 2019-10-07 17:31 | Operative Report ---
Post Operative Report Pre & Post Diagnosis Operation Date: 10/06/19 10:00 Pre-Op Diagnosis: Disorder of Esophagus- Loss of Weight Post-Op Diagnosis: ESOPHAGEAL TUMOR Operation Date: 10/07/19 07:30 Pre-Op Diagnosis: ESOPHAGEAL MASS, FAILURE TO THRIVE Post-Op Diagnosis: ESOPHAGEAL MASS, FAILURE TO THRIVE I identified the patient and participated in the time-out.: Yes Procedure Operation Date: 10/06/19 10:00 Actual Procedures p EGD Biopsy Cytology - Jennifer Easley MD Operation Date: 10/07/19 07:30 Actual Procedures p Esophagogastroduodenoscopy(Not Applicable) - Jennifer Easley MD s PEG Tube Placement and Stent Placement(Not Applicable) - Jennifer Easley MD Surgeon Jennifer Easley MD Green Building Engineer None Estimated Blood Loss 0 Findings See Below (Esophageal obstruction, Stent placed and PEG tube placed) Specimens None Description of Procedure EGD I attest to the content of the Intraoperative Record and any orders documented therein. Any exceptions are noted below.
--- NOTE | 2019-10-07 18:16 | Anesthesiology Progress Note ---
Date of Service October 07, 2019 Anesthesia Post Procedure Vital Signs Vital Signs: Temp Pulse Pulse Resp BP Pulse Ox 10/07/19 18:10 36.6 C 62 21 192/95 H 62 L 10/07/19 18:00 62 21 194/97 H 99 10/07/19 17:50 62 21 189/91 H 99 10/07/19 17:42 36.0 C L 62 16 187/94 H 100 10/07/19 15:21 36.5 C 64 14 158/75 H 96 10/07/19 08:00 36.3 C L 60 20 155/70 H 97 10/06/19 23:45 36.7 C 61 16 150/73 H 98 10/06/19 19:33 36.5 C 56 L 16 153/65 H 99 Transfer of Care Handoff Completed per policy Notes Mental Status: alert / awake / arousable Patient Amnestic to Procedure: Yes Nausea / Vomiting: adequately controlled Pain: adequately controlled Airway Patency, RR, SpO2: stable & adequate BP & HR: stable & adequate Hydration State: stable & adequate Anesthetic Complications: no major complications apparent
--- NOTE | 2019-10-07 18:17 | GI REPORT ---
Patient Name: Krunal Ta Procedure Date: 10/07/2019 4:31 PM Date of : 1930 Admit Type: Inpatient Age: 89 Gender: Male Attending MD: Jennifer Easley MD Procedure: Upper GI endoscopy Providers: Jennifer Easley MD Referring MD: Santiago Dalton Piljamey Indications: Therapeutic procedure, Dysphagia, For therapy of esophageal stenosis, Place PEG due to dysphagia, Place PEG due to feeding difficulties secondary to esophageal tumor, Stent insertion, For palliative stenting of stenosing neoplasm of the esophagus Medicines: Propofol per Anesthesia, Ancef 1000 mg IV Complications: No immediate complications. Estimated Blood Loss: Estimated blood loss: none. Procedure: Pre-Anesthesia Assessment: - Prior to the procedure, a History and Physical was performed, and patient medications, allergies and sensitivities were reviewed. The patient's tolerance of previous anesthesia was reviewed. - The risks and benefits of the procedure and the sedation options and risks were discussed with the patient. All questions were answered and informed consent was obtained. - Patient identification and proposed procedure were verified prior to the procedure by the physician and the nurse. The procedure was verified in the procedure room. - Pre-procedure physical examination revealed no contraindications to sedation. After obtaining informed consent, the endoscope was passed under direct vision. Throughout the procedure, the patient's blood pressure, pulse, and oxygen saturations were monitored continuously. The Endoscope was introduced through the mouth, and advanced to the second part of duodenum. The upper GI endoscopy was accomplished without difficulty. The patient tolerated the procedure well. Findings: A large, fungating and ulcerating mass with bleeding and stigmata of recent bleeding (large adherent blood clot) was found in the middle and lower thirds of the esophagus. The mass was completely obstructing and circumferential. A 0.035 guidewire was passed through the tumor and advanced to the stomach using fluoroscopy, I personally interpretted the fluoroscopy images. Under endoscopic and fuoroscopic guidance, the esophageal stent was advanced over the guidewire. The total tumor length was 11 cm hence a 20 mm x 15 cm Evolution partially covered controlled-release stent with a 25 mm flange was placed. The proximal margin at 30 cm from the incisors. To anchor the stent, one hemostatic clip was successfully placed (MR conditional). The stent was in good position proximally and distally. Using the XP scope, the entire examined stomach was normal and the scope was advanced through the esophageal stent. The patient was placed in the supine position for PEG placement. The stomach was insufflated to appose gastric and abdominal montano. A site was located in the body of the stomach with excellent transillumination and manual external pressure for placement. The abdominal wall was marked and prepped in a sterile manner. The area was anesthetized with 2 mL of 1% lidocaine. The trocar needle was introduced through the abdominal wall and into the stomach under direct endoscopic view. A snare was introduced through the endoscope and opened in the gastric lumen. The guide wire was passed through the trocar and into the open snare. The snare was closed around the guide wire. The endoscope and snare were removed, pulling the wire out through the mouth. A skin incision was made at the site of needle insertion. The externally removable 20 Fr Naif-Cook gastrostomy tube was lubricated. The G-tube was tied to the guide wire and pulled through the mouth and into the stomach and going through the esophageal stent which was held in place using a raptor forceps. The trocar needle was removed, and the gastrostomy tube was pulled out from the stomach through the skin. The external bumper was attached to the gastrostomy tube, and the tube was cut to remove the guide wire. The final position of the gastrostomy tube was confirmed by relook endoscopy, and skin marking noted to be 1.5 cm at the external bumper. The final tension and compression of the abdominal wall by the PEG tube and external bumper were checked and revealed that the bumper was moderately tight and mildly deforming the skin. The feeding tube was capped, and the tube site cleaned and dressed. The duodenal bulb and second portion of the duodenum were normal. 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 Esophageal stent was placed. - Normal stomach. - Normal duodenal bulb and second portion of the duodenum. - An externally removable PEG placement was successfully completed. Recommendation: - [facility]. - Clear liquid diet today then advance afterwards as tolerated to mechanical soft diet and follow special instruction of esophageal stent diet. - Follow an antireflux regimen. - Use Protonix (pantoprazole) 40 mg PO daily. - Please follow the post-PEG recommendations including: Nutrition consult for formula and volume, dry dressing only and may use PEG tomorrow for feedings. - Refer to an oncologist. - Family wants the patient to be placed in a NH for rehab, primary team to assist. Jennifer Easley MD 10/07/2019 6:17:23 PM This report has been signed electronically. Note Initiated On: 10/07/2019 4:31 PM Number of Addenda: 0 I attest to the content of the Intraoperative Record and orders documented therein, exceptions below {[id number]}
[2019-10-07] MEDS ORDERED: HYDROmorphone INJ 0.5 MG/0.5 ML SYR IV PRN (18:54)
--- NOTE | 2019-10-07 19:37 | Hospitalist Progress Note ---
Date of Service October 07, 2019 Assessment & Plan (1) Esophageal mass: This is an 89-year-old male with significant PMH of hypothyroidism, CKD stage III baseline creatinine 1.7, anemia who presents to [facility] for elective EGD secondary to abnormal outpatient CT scan abdomen pelvis concerning for esophageal mass. Patient is a direct admission from GI service secondary to abnormal findings on EGD. 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 Pt admitted to med/surg GI service following Pt is currently s/p EGD with stent and peg tube placement Pt tolerated the procedure well Will order nutrition consult for feeds Will need referral to oncology Will discuss with GI option of PO intake/ stent diet - cont. to monitor BMPm CBC (2) Adult failure to thrive: Weight 44.1kg Consult dietitian for poss. PO intake and tube feeds (3) Hypothyroidism: Continue levothyroxine (4) CKD (chronic kidney disease) stage 3, GFR 30-59 ml/min: baseline Cr 1.7 bun/cr 25 and 1.38 today pt appeared dry and dehydrated on admission - received IVF 80cc/hr x 2L - will cont. to monitor as pt's nutr. intake will likely sign. 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 Mooney upon discharge, also will need set up w/ oncology Subjective Pt seen on the floor after PEG tube and esophageal stent placement. Family at the bedside. Pt says that he feels well, just tired, likely from anesthesia. Currently denies any pain or discomfort. Also denies any fever, chills, chest pain, shortness of breath, abd. pain, nausea. Family at the bedside, interested in talking to CM about placement after discharge. Review of Systems Review of Systems: All systems reviewed & are unremarkable except as noted in HPI & below Constitutional: no fever and no chills Respiratory: no cough and no dyspnea Cardiovascular: no chest pain and no palpitations Gastrointestinal: no abdominal pain, no nausea and no vomiting Physical Exam Physical Exam: Constitutional: Thin, cachectic, elderly, male, lying in bed, in NAD, appears tired (just arrived from PACU) Head: Normocephalic, Atraumatic, b/l temporal wasting Eyes: PERRL, EOMI,conjunctivae normal, anicteric sclerae ENMT: external ear and nose normal, oropharynx dry mucous membranes Neck: trachea midline, no thyromegaly normal visual inspection Respiratory: normal respiratory effort, lungs clear to auscultation, no wheeze, rales, rhonchi. Normal insp/exp effort, no accessory muscle use Cardiovascular: RRR, no murmur, no edema Vessels: no JVD or carotid bruit Chest: normal inspection of chest, cachexia Abdomen: normal bowel sounds, soft, nontender, nondistended, clean dry dressings applied over abdomen (s/p PEG tube placement) Musculoskeletal: no cyanosis or clubbing, moves extremities spontaneously Skin: no rashes, warm and dry Neurologic: PERRL, EOMI, accommodation nl, no face palsy, no dysarthria CN's II-XI intact bilaterally and moves all extremities Psychiatric: A+Ox3, euthymic affect Results & Data Vital Signs (Past 12 Hours) Vital Signs Temp Pulse Pulse Resp BP BP Pulse Ox 10/07/19 19:10 36.2 C L 59 L 12 186/66 H 100 10/07/19 18:53 194/90 H 10/07/19 18:37 36.3 C L 59 L 18 203/88 H 206/88 H 100 10/07/19 18:20 36.6 C 69 17 195/98 H 100 10/07/19 18:10 36.6 C 62 21 192/95 H 62 L 10/07/19 18:00 62 21 194/97 H 99 10/07/19 17:50 62 21 189/91 H 99 10/07/19 17:42 36.0 C L 62 16 187/94 H 100 10/07/19 15:21 36.5 C 64 14 158/75 H 96 10/07/19 08:00 36.3 C L 60 20 155/70 H 97 Laboratory Results 10/07/19 10/07/19 Range/Units 05:40 05:40 WBC 10.78 (4.8-10.8) K/uL RBC 2.70 L (4.7-6.1) M/uL Hgb 8.2 L (14.0-18.0) g/dL Hct 24.7 L (42-52) % MCV 91.5 (80-100) fL MCH 30.4 (25-34) pg MCHC 33.2 (32-36) g/dL RDW Std Deviation 48.3 H (36.4-46.3) fL RDW Coeff of Evan 14.4 (11.5-14.5) % Plt Count 308 (130-400) K/uL MPV 8.3 (7.4-10.4) fL Immature Gran % (Auto) 0.2 % Neut % (Auto) 53.5 % Lymph % (Auto) 36.5 % [place] % (Auto) 8.2 % Eos % (Auto) 1.0 % Baso % (Auto) 0.6 % Immature Gran # (Auto) 0.02 (0.00-0.02) K/uL Neut # (Auto) 5.77 (1.4-6.5) K/uL Lymph # (Auto) 3.94 H (1.2-3.4) K/uL [place] # (Auto) 0.88 H (0.11-0.59) K/uL Eos # (Auto) 0.11 (0-0.5) K/uL Baso # (Auto) 0.06 (0-0.2) K/uL Sodium 139 (136-145) mmol/L Potassium 3.9 (3.5-5.1) mmol/L Chloride 109 H (98-107) mmol/L Carbon Dioxide 26 (21-32) mmol/L Anion Gap 4.0 (3-11) BUN 22 H (7-18) mg/dl Creatinine 1.12 (0.6-1.4) mg/dl Est Cr Clr Drug Dosing 27.9 ml/min Est GFR ( Amer) 67.1 Est GFR (Non-Af Amer) 57.9 BUN/Creatinine Ratio 19.4 (10-20) Glucose 82 (70-99) mg/dl Calcium 8.0 L (8.5-10.1) mg/dl Magnesium 1.9 (1.8-2.4) mg/dl Total Bilirubin 0.2 (0.2-1) mg/dl AST 22 (15-37) U/L ALT 8 L (12-78) U/L Alkaline Phosphatase 51 (45-117) U/L Total Protein 6.3 L (6.4-8.2) gm/dl Albumin 2.0 L (3.4-5.0) gm/dl Globulin 4.3 H (2.5-4.0) gm/dl Albumin/Globulin Ratio 0.5 L (0.9-2) Medications Administered Current Inpatient Medications Acetaminophen (Tylenol) 650 mg PO Q4H PRN PRN Reason: pain/fever Stop: 11/05/19 11:42 Al Hydrox/Mg Hydrox/Simethicone (Maalox) 30 ml PO Q6H PRN PRN Reason: Dyspepsia Stop: 11/05/19 11:42 Hydromorphone HCl (Dilaudid) 0.5 mg IV Q2H PRN PRN Reason: Pain Stop: 10/21/19 18:53 Levothyroxine Sodium (Synthroid) 50 mcg PO DAILYBB TYRA Stop: 11/06/19 06:29 Last Admin: 10/07/19 04:50 Dose: Not Given Documented by: Magnesium Hydroxide (Milk Of Magnesia) 30 ml PO Q6H PRN PRN Reason: Constipation Stop: 11/05/19 11:42 Ondansetron HCl (Zofran) 4 mg IV Q6H PRN PRN Reason: Nausea Stop: 11/05/19 11:42 Polyethylene Glycol (Miralax Powder Packet) 17 gm PO DAILY PRN PRN Reason: Constipation Stop: 11/05/19 11:42
[2019-10-08] MEDS ORDERED: D5W AND LACTATED RINGERS 1,000 ML IV SCH (01:00)
[2019-10-08] MEDS: LEVOTHYROXINE SODIUM 50 MCG TABLET PO SCH (05:19)
--- NOTE | 2019-10-08 08:39 | Anesthesiology Progress Note ---
Date of Service October 08, 2019 Anesthesia Post Procedure Vital Signs Vital Signs: Temp Pulse Pulse Resp BP BP Pulse Ox 10/08/19 07:35 36.4 C L 70 16 147/69 H 99 10/08/19 03:35 36.5 C 83 16 130/75 96 10/07/19 22:15 36.3 C L 83 12 130/64 96 10/07/19 20:53 36.3 C L 73 12 177/82 H 100 10/07/19 19:37 36.2 C L 60 16 185/81 H 100 10/07/19 19:10 36.2 C L 59 L 12 186/66 H 100 10/07/19 18:53 194/90 H 10/07/19 18:37 36.3 C L 59 L 18 203/88 H 206/88 H 100 10/07/19 18:20 36.6 C 69 17 195/98 H 100 10/07/19 18:10 36.6 C 62 21 192/95 H 62 L 10/07/19 18:00 62 21 194/97 H 99 10/07/19 17:50 62 21 189/91 H 99 10/07/19 17:42 36.0 C L 62 16 187/94 H 100 10/07/19 15:21 36.5 C 64 14 158/75 H 96 Pain Intensity Lower Abdomen: Pain Intensity: 5 Notes Mental Status: alert / awake / arousable and participated in evaluation Patient Amnestic to Procedure: Yes Nausea / Vomiting: adequately controlled Pain: adequately controlled Airway Patency, RR, SpO2: stable & adequate BP & HR: stable & adequate Hydration State: stable & adequate Anesthetic Complications: no major complications apparent and Pt Satisfied with anesthetic care
[2019-10-08] MEDS: PANTOprazole 40 MG TAB PO SCH (09:03)
--- NOTE | 2019-10-08 09:18 | Gastroenterology Progress Note ---
Date of Service October 08, 2019 Assessment & Plan (1) Esophageal mass: 89 year old male s/p esophageal stening and PEG placement for malignant, obstructive esophageal mass Clear liquid diet today then advance afterwards astolerated to mechanical soft diet and follow special instruction of esophageal stent diet. Use Protonix (pantoprazole) 40 mg PO daily. Please follow the post-PEG recommendations including:Nutrition consult for formula and volume, dry dressing only and may use PEG today for feedings. Refer to an oncologist. Family wants the patient to be placed in a NH for rehab, primary team to assist. Will sign off Thank you for allowing us to participate in the care of this p atient. Please call with any acute changes, questions or concerns. Please see addendum below with additional recommendation from my supervising physician. Present on Admission?: Yes Supervising Physician Co-Signing Physician Notes I performed a history and physical examination of the patient, including specifically on physical exam - soft, nontender abdomen. I have discussed the patient's management with Renee. Please refer to the nurse practitioner's note for the documented findings and plan of care. PEG intact. being used. Patient feels well. Please consult Oncology. PO mechanical soft diet as tolerated. Recall GI as needed. Subjective Feeling well Upright in bed Eating clear liquids No complaints No esophageal pain or CP No abd pain No black or bloody stools Review of Systems Constitutional: no fever Respiratory: no cough Cardiovascular: no chest pain Gastrointestinal: no abdominal pain Physical Exam Constitutional: + ill appearing, + thin and + cachectic Neck: trachea midline Respiratory: normal respiratory effort Cardiovascular: Rate/Rhythm: regular rate Gastrointestinal (Abdomen): Inspection/Auscultation: normal bowel sounds Percussion/Palpation: abdomen soft PEG tube in place. No pain with manipulation. Results & Data Vital Signs (Past 12 Hours) Vital Signs Temp Pulse Resp BP BP Pulse Ox 10/08/19 07:35 36.4 C L 70 16 147/69 H 99 10/08/19 03:35 36.5 C 83 16 130/75 96 10/07/19 22:15 36.3 C L 83 12 130/64 96
--- NOTE | 2019-10-08 12:11 | XRay Report ---
GASTROSTOMY TUBE CHECK CLINICAL HISTORY: PEG tube placement COMPARISON STUDY: No previous studies for comparison. FINDINGS: There is contrast within the colon. There is extensive colonic diverticulosis. There is a g astrostomy tube present. 20 cc of Optiray 320 was instilled through the tube. The stomach is opacifie d. There is no extravasation. Note is made of a distal esophageal stent. IMPRESSION: The gastrostomy tube is located within the stomach. No contrast extravasation was visual ized. ACT 112: Negative or not required by law. Electronically signed by: Gerald Cheng M.D. 10/08/2019 12:10 PM
[2019-10-08] MEDS: PEPTAMEN 1.5 CAL 1,000 ML BAG PEG SCH (13:15)
--- NOTE | 2019-10-08 15:47 | Progress Note ---
Date of Service October 08, 2019 Subjective Spoke to from Oncology and he will see the patient as OP. Results & Data Vital Signs (Past 12 Hours) Vital Signs Temp Pulse Resp BP BP Pulse Ox 10/08/19 15:25 36.6 C 64 16 143/67 H 98 10/08/19 11:15 36.9 C 98 H 16 137/68 95 10/08/19 07:35 36.4 C L 70 16 147/69 H 99
--- NOTE | 2019-10-08 17:09 | Hospitalist Progress Note ---
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 Patient is a direct admission from GI service secondary to abnormal findings on EGD. 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 -s/p EGD with stent and peg tube placement and biopsy of the esophageal mass on this admission -ESOPHAGUS, TUMOR, BIOPSY: INVASIVE ADENOCARCINOMA, MODERATELY DIFFERENTIATED HER2 IMMUNOSTAINING RESULTS: EQUIVOCAL (SCORE 2+) HER2 FISH: pending -as per 10/08/2019 GI recommendations: Clear liquid diet today then advance afterwards as tolerated to mechanical soft diet and follow special instruction of esophageal stent diet; Use Protonix (pantoprazole) 40 mg PO daily. -outpatient follow up with oncology Dr. Rigo Dubose and [facility] affiliated gastroneterology (2) Adult failure to thrive: s/p PEG tube placement on this admission Enteral Feeds -Weight 44.1kg -credit verification clerk is following the patients PEG feeds and nutrition requirements (3) Hypothyroidism: -Continue levothyroxine (4) CKD (chronic kidney disease) stage 3, GFR 30-59 ml/min: -monitor renal function (5) Anemia: -monitor hemoglobin -normal vitamin B12 and normal folic acid -would not start iron supplements to avoid esophagitis (6) DVT prophylaxis: -SCD/TEDS Subjective Patient able to tolerate liquid oral diet. Patient has PEG tube in place and receiving tube feeds without acute events. no distress. appears comfortable. no abdomen pain. anya vomiting, no chest pain. breathing on room air. no shortness of breath. no dizziness. no lightheadedbess Review of Systems Review of Systems: All systems reviewed & are unremarkable except as noted in HPI & below Physical Exam Constitutional: comfortable Eyes: PERRL, conjunctivae normal, anicteric sclerae EOM intact bilaterally ENMT: external ear and nose normal, oropharynx normal Neck: normal visual inspection Respiratory: normal respiratory effort, lungs clear to auscultation Cardiovascular: Rate/Rhythm: regular rate and regular rhythm Gastrointestinal (Abdomen): PEG tube in place Musculoskeletal: Head/Neck/Chest: normocephalic and head atraumatic Neurologic: PERRL, EOMI, accommodation nl, no face palsy, no dysarthria Psychiatric: Orientation: alert and cooperative Results & Data Vital Signs (Past 12 Hours) Vital Signs Temp Pulse Resp BP BP Pulse Ox 10/08/19 15:25 36.6 C 64 16 143/67 H 98 10/08/19 11:15 36.9 C 98 H 16 137/68 95 10/08/19 07:35 36.4 C L 70 16 147/69 H 99
[2019-10-08] MEDS ORDERED: MAGNESIUM SULFATE / D5W 1 GM/100 ML BAG IV ONE (17:19)
[2019-10-09] MEDS: LEVOTHYROXINE SODIUM 50 MCG TABLET PO SCH (06:07)
[2019-10-09 07:04] LABS: Basophils # (auto) 0.01 K/uL (0-0.2); Basophils % (auto) 0.1 %; Eosinophils # (auto) 0.08 K/uL (0-0.5); Eosinophils % (auto) 0.7 %; Hematocrit (blood only) 23.9 % (42-52); Hemoglobin 7.8 g/dL (14.0-18.0); Immature Granulocytes # (auto) 0.02 K/uL (0.00-0.02); Immature Granulocytes % (auto) 0.2 %; Lymphocytes # (auto) 2.73 K/uL (1.2-3.4); Lymphocytes % (auto) 25.4 %; Mean Corpuscular Hemoglobin 29.5 pg (25-34); Mean Corpuscular Hgb Conc 32.6 g/dL (32-36); Mean Corpuscular Volume 90.5 fL (80-100); Mean Platelet Volume 8.5 fL (7.4-10.4); Monocytes # (auto) 0.68 K/uL (0.11-0.59); Monocytes % (auto) 6.3 %; Neutrophils # (auto) 7.21 K/uL (1.4-6.5); Neutrophils % (auto) 67.3 %; Platelet Count 280 K/uL (130-400); RDW Coefficient of Variation 14.1 % (11.5-14.5); RDW Standard Deviation 46.5 fL (36.4-46.3); Red Blood Count 2.64 M/uL (4.7-6.1); White Blood Count 10.73 K/uL (4.8-10.8)
[2019-10-09 07:41] LABS: Albumin Level 1.8 gm/dl (3.4-5.0); Aspartate Aminotransferase 18 U/L (15-37); BUN Creatinine Ratio 25.7 (10-20); Blood Urea Nitrogen 27 mg/dl (7-18); Calcium 8.2 mg/dl (8.5-10.1); Carbon Dioxide 29 mmol/L (21-32); Chloride 106 mmol/L (98-107); Est GFR (African American) 72.6; Est GFR (Non-African American) 62.6; Glucose 116 mg/dl (70-99); Potassium 4.1 mmol/L (3.5-5.1); Sodium 138 mmol/L (136-145)
[2019-10-09 07:44] LABS: Alanine Aminotransferase < 6 U/L (12-78); Albumin Globulin Ratio 0.4 (0.9-2); Alkaline Phosphatase 45 U/L (45-117); Bilirubin,Total 0.2 mg/dl (0.2-1); Globulin 4.3 gm/dl (2.5-4.0); Phosphorus 1.6 mg/dl (2.5-4.9); Total Protein 6.1 gm/dl (6.4-8.2)
--- NOTE | 2019-10-09 08:39 | Hospitalist Progress Note ---
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 Patient is a direct admission from GI service secondary to abnormal findings on EGD. 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 -s/p EGD with stent and peg tube placement and biopsy of the esophageal mass on this admission -ESOPHAGUS, TUMOR, BIOPSY: INVASIVE ADENOCARCINOMA, MODERATELY DIFFERENTIATED HER2 IMMUNOSTAINING RESULTS: EQUIVOCAL (SCORE 2+) HER2 FISH: pending -patient completed liquid diet on 10/08/2019 with PEG feeds running -advance to moist minced diet as tolerated with PEG feeds on 10/09/2019 upcoming scheduled appointments 10/15/2019 1:00 PM Provider Santiago Mooney MD Department Internal Medicine [facility] 10/23/2019 2:00 PM Provider Jennifer Easley MD Department Gastroenterology, [facility] Hospitalist has contacted Dr. Rigo Dubose of Oncology clinic at [address], [place] [address] to coordinate clinic appointment with patient (2) Adult failure to thrive: s/p PEG tube placement on this admission Enteral Feeds -Weight 44.1kg -as per oim consultant 10/08/2019 estimates that optimal PEG tube feeds with Peptamen 1.5 and goal rate of 45 ml/hr if feeding are to run for 24 hours (24 hour feeds would give estimated 1620 kcals, 70 to 75 grams of protein, 205 grams of carbohydrates, 825 ml of free water) -multivitamin and thiamine started on 10/09/2019 (3) Hypothyroidism: -Continue levothyroxine (4) CKD (chronic kidney disease) stage 3, GFR 30-59 ml/min: -monitor renal function (5) Anemia: -normal vitamin B12 and normal folic acid -would not start iron supplements to avoid pill esophagitis (6) DVT prophylaxis: -SCD/TEDS Subjective Patient tolerated liquid diet. Denies acute pain of throat or abdomen. no chest pain. no shortness of breath. no acute distress. no vomiting. no nausea. He reported bowel movement this AM Review of Systems Review of Systems: All systems reviewed & are unremarkable except as noted in HPI & below Physical Exam Constitutional: comfortable Eyes: PERRL, conjunctivae normal, anicteric sclerae EOM intact bilaterally ENMT: external ear and nose normal, oropharynx normal Neck: normal visual inspection Respiratory: normal respiratory effort, lungs clear to auscultation Cardiovascular: Rate/Rhythm: regular rate and regular rhythm Gastrointestinal (Abdomen): Inspection/Auscultation: normal bowel sounds Percussion/Palpation: abdomen soft (PEG tube in place) Musculoskeletal: Head/Neck/Chest: normocephalic and head atraumatic Neurologic: PERRL, EOMI, accommodation nl, no face palsy, no dysarthria Psychiatric: Orientation: alert and cooperative Results & Data Vital Signs (Past 12 Hours) Vital Signs Temp Pulse Resp BP Pulse Ox 10/09/19 06:58 36.9 C 75 18 128/68 95 10/08/19 23:12 37.2 C 75 16 126/66 97
[2019-10-09] MEDS: PANTOprazole 40 MG TAB PO SCH (09:04)
[2019-10-09] MEDS: MULTIVITAMIN TAB PO SCH (09:04)
[2019-10-09] MEDS: THIAMINE HCL 50 MG TABLET PO SCH (09:05)
[2019-10-09] MEDS: ACETAMINOPHEN 325 MG TAB PO PRN (11:40)
[2019-10-09] MEDS: METOCLOPRAMIDE HCL 5 MG TABLET PO SCH ×2 (13:17→22:41)
[2019-10-09] MEDS: PEPTAMEN 1.5 CAL 1,000 ML BAG PEG SCH (20:04)
[2019-10-10] MEDS: LEVOTHYROXINE SODIUM 50 MCG TABLET PO SCH (06:22)
[2019-10-10] MEDS: METOCLOPRAMIDE HCL 5 MG TABLET PO SCH ×3 (06:22→21:42)
[2019-10-10] MEDS ORDERED: POTASSIUM PHOS 3 MMOL/1 ML INFUSION IV STA (07:37)
[2019-10-10] MEDS: THIAMINE HCL 50 MG TABLET PO SCH (08:00)
[2019-10-10] MEDS ORDERED: POTASSIUM PHOSPHATE 21 MMOL in SODIUM CHLORIDE 0.9% 500 ML IV ONE (08:00)
[2019-10-10] MEDS: PANTOprazole 40 MG TAB PO SCH (08:00)
[2019-10-10] MEDS: [UNRECOGNIZED DRUG - REMARK] SCH (08:01)
[2019-10-10] MEDS: MULTIVITAMIN TAB PO SCH (08:01)
[2019-10-10] MEDS: POT PHOSPHATE MONOBASIC W/ SOD TAB PO SCH ×2 (09:29→12:36)
--- NOTE | 2019-10-10 14:45 | Hospitalist Progress Note ---
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 Patient is a direct admission from GI service secondary to abnormal findings on EGD. 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 -s/p EGD with stent and peg tube placement and biopsy of the esophageal mass on this admission -ESOPHAGUS, TUMOR, BIOPSY: INVASIVE ADENOCARCINOMA, MODERATELY DIFFERENTIATED HER2 IMMUNOSTAINING RESULTS: EQUIVOCAL (SCORE 2+) HER2 FISH: pending -patient completed liquid diet on 10/08/2019 with PEG feeds running -advance to moist minced diet as tolerated with PEG feeds on 10/09/2019 upcoming scheduled appointments 10/15/2019 1:00 PM Provider Santiago Mooney MD Department Internal Medicine [facility] 10/23/2019 2:00 PM Provider Jennifer Easley MD Department Gastroenterology, [facility] Hospitalist has contacted Dr. Rigo Dubose of Oncology clinic at [address], [place] [address] to coordinate clinic appointment with patient (2) Adult failure to thrive: s/p PEG tube placement on this admission Enteral Feeds -Weight 44.1kg -as per patient care technician 10/08/2019 estimates that optimal PEG tube feeds with Peptamen 1.5 and goal rate of 45 ml/hr if feeding are to run for 24 hours (24 hour feeds would give estimated 1620 kcals, 70 to 75 grams of protein, 205 grams of carbohydrates, 825 ml of free water) -multivitamin and thiamine started on 10/09/2019 -10/09/2019 revised patient care technician recommendations that since patient able to tolerate the minced, moist diet with meals that PEG tube feeds only need to be overnight on a 12 hour period as Peptamen 1.5 and goal rate of 70 ml/hr (12 hour feeds would give estimated 1250 kcals, 60 grams of protein, 160 grams of carbohydrates, 650 ml of free water) -10/10/2019 continue as inpatient to titrate to goal PEG feed rate Hypophosphatemia -serum phosphorous 1.6 on 10/10/2019, after IV and oral supplements, serum phosphoroous as 3.4 (3) Hypothyroidism: -Continue levothyroxine (4) CKD (chronic kidney disease) stage 3, GFR 30-59 ml/min: -monitor renal function (5) Anemia: -normal vitamin B12 and normal folic acid -would not start iron supplements to avoid pill esophagitis (6) DVT prophylaxis: -SCD/TEDS Subjective since patient able to tolerate the minced, moist diet with meals that PEG tube feeds only need to be overnight on a 12 hour period as Peptamen 1.5 (12 hour feeds would give estimated 1250 kcals, 60 grams of protein, 160 grams of carbohydrates, 650 ml of free water) as per nursing staff, when patient was on Peg feeds, he was at a rate of 50 ml/hr. Patient does not have abdominal pain. no vomiting. PEG tube site is clean. Patient able to tolerate the oral diet. no chest pain. no shortness of breath. no dizziness. no headache Review of Systems Review of Systems: All systems reviewed & are unremarkable except as noted in HPI & below Physical Exam Constitutional: comfortable Eyes: PERRL, conjunctivae normal, anicteric sclerae EOM intact bilaterally ENMT: external ear and nose normal, oropharynx normal Neck: normal visual inspection Respiratory: normal respiratory effort, lungs clear to auscultation Cardiovascular: Rate/Rhythm: regular rate and regular rhythm Gastrointestinal (Abdomen): Inspection/Auscultation: normal bowel sounds Percussion/Palpation: abdomen soft (PEG tube in place) Musculoskeletal: Head/Neck/Chest: normocephalic and head atraumatic Neurologic: PERRL, EOMI, accommodation nl, no face palsy, no dysarthria Psychiatric: Orientation: alert and cooperative Results & Data Vital Signs (Past 12 Hours) Vital Signs Temp Pulse Resp BP Pulse Ox 10/10/19 06:37 36.9 C 75 16 137/71 96
[2019-10-10] MEDS: PEPTAMEN 1.5 CAL 1,000 ML BAG PEG SCH (20:39)
[2019-10-11] MEDS: LEVOTHYROXINE SODIUM 50 MCG TABLET PO SCH (05:46)
[2019-10-11] MEDS: METOCLOPRAMIDE HCL 5 MG TABLET PO SCH ×3 (05:46→21:16)
[2019-10-11 05:58] LABS: BUN Creatinine Ratio 24.4 (10-20); Calcium 7.5 mg/dl (8.5-10.1); Creatinine Clr Calc Pharmacy 37.9 ml/min; Est GFR (African American) 90.9; Est GFR (Non-African American) 78.4; Potassium 3.9 mmol/L (3.5-5.1)
[2019-10-11 06:02] LABS: Phosphorus 2.5 mg/dl (2.5-4.9)
[2019-10-11] MEDS: [UNRECOGNIZED DRUG - REMARK] SCH (08:06)
[2019-10-11] MEDS: MULTIVITAMIN TAB PO SCH (08:35)
[2019-10-11] MEDS: PANTOprazole 40 MG TAB PO SCH (08:35)
[2019-10-11] MEDS: THIAMINE HCL 50 MG TABLET PO SCH (08:35)
--- NOTE | 2019-10-11 08:52 | Hospitalist Progress Note ---
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 Patient is a direct admission from GI service secondary to abnormal findings on EGD. 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 -s/p EGD with stent and peg tube placement and biopsy of the esophageal mass on this admission -ESOPHAGUS, TUMOR, BIOPSY: INVASIVE ADENOCARCINOMA, MODERATELY DIFFERENTIATED HER2 IMMUNOSTAINING RESULTS: EQUIVOCAL (SCORE 2+) HER2 FISH: pending upcoming scheduled appointments 10/15/2019 1:00 PM Provider Santiago Mooney MD Department Internal Medicine [facility] 10/23/2019 2:00 PM Provider Jennifer Easley MD Department Gastroenterology, [facility] Hospitalist has contacted Dr. Rigo Dubose of Oncology clinic at [address], [place] [address] to coordinate clinic appointment with patient (2) Adult failure to thrive: s/p PEG tube placement on this admission Enteral Feeds -Weight 44.1kg -as per manager servicing 10/08/2019 estimates that optimal PEG tube feeds with Peptamen 1.5 and goal rate of 45 ml/hr if feeding are to run for 24 hours (24 hour feeds would give estimated 1620 kcals, 70 to 75 grams of protein, 205 grams of carbohydrates, 825 ml of free water) -multivitamin daily and thiamine daily started on 10/09/2019 -10/09/2019 revised manager servicing recommendations that since patient able to tolerate the minced, moist diet with meals that PEG tube feeds only need to be overnight on a 12 hour period as Peptamen 1.5 and goal rate of 70 ml/hr (12 hour feeds would give estimated 1250 kcals, 60 grams of protein, 160 grams of carbohydrates, 650 ml of free water) -10/10/2019 continue as inpatient to titrate to goal PEG feed rate -10/11/2019: Overnight patient's PEG feeds were at 50 ml/hr and plans to increase to 70 ml/hr tonight. Hypophosphatemia -serum phosphorous 1.6 on 10/10/2019, after IV and oral supplements, serum phosphorous as 3.4 -serum phosphorous 2.5 on 10/11/2019 (3) Hypothyroidism: -Continue levothyroxine (4) CKD (chronic kidney disease) stage 3, GFR 30-59 ml/min: -monitor renal function (5) Anemia: -normal vitamin B12 and normal folic acid -would not start iron supplements to avoid pill esophagitis (6) DVT prophylaxis: -SCD/TEDS Disposition: once PEG feeds at goal, will plan on discharge to [facility] for physical rehabilitation and further usp care Subjective Patient seen laying on the bed. He was able to make urine with the urinal on his own. Overnight patient's PEG feeds were at 50 ml/hr and plans to increase to 70 ml/hr tonight. Patient does not have abdominal pain. no nausea. no vomiting. no shortness of breath. no chest pain. no dizziness. no vomiting Review of Systems Review of Systems: All systems reviewed & are unremarkable except as noted in HPI & below Physical Exam Constitutional: comfortable Eyes: PERRL, conjunctivae normal, anicteric sclerae EOM intact bilaterally ENMT: external ear and nose normal, oropharynx normal Neck: normal visual inspection Respiratory: normal respiratory effort, lungs clear to auscultation Cardiovascular: Rate/Rhythm: regular rate and regular rhythm Gastrointestinal (Abdomen): Inspection/Auscultation: normal bowel sounds Percussion/Palpation: abdomen soft (PEG tube in place) Musculoskeletal: Head/Neck/Chest: normocephalic and head atraumatic Neurologic: PERRL, EOMI, accommodation nl, no face palsy, no dysarthria Psychiatric: Orientation: alert and cooperative Results & Data Vital Signs (Past 12 Hours) Vital Signs Temp Pulse Resp BP Pulse Ox 10/10/19 23:19 37.1 C 77 16 136/73 96
[2019-10-11] MEDS: ACETAMINOPHEN 325 MG TAB PO PRN (12:14)
[2019-10-11] MEDS: PEPTAMEN 1.5 CAL 1,000 ML BAG PEG SCH (19:05)
[2019-10-12] MEDS: METOCLOPRAMIDE HCL 5 MG TABLET PO SCH (05:16)
[2019-10-12] MEDS: LEVOTHYROXINE SODIUM 50 MCG TABLET PO SCH (05:16)
[2019-10-12] MEDS: [UNRECOGNIZED DRUG - REMARK] SCH (07:48)
--- NOTE | 2019-10-12 08:08 | Hospitalist Progress Note ---
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 Patient is a direct admission from GI service secondary to abnormal findings on EGD. 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 -s/p EGD with stent and peg tube placement and biopsy of the esophageal mass on this admission -ESOPHAGUS, TUMOR, BIOPSY: INVASIVE ADENOCARCINOMA, MODERATELY DIFFERENTIATED HER2 IMMUNOSTAINING RESULTS: EQUIVOCAL (SCORE 2+) HER2 FISH: pending upcoming scheduled appointments 10/15/2019 1:00 PM Provider Santiago Mooney MD Department Internal Medicine [facility] 10/23/2019 2:00 PM Provider Jennifer Easley MD Department Gastroenterology, [facility] Hospitalist has contacted Dr. Rigo Dubose of Oncology clinic at [address], [place] [address] to coordinate clinic appointment with patient (2) Adult failure to thrive: s/p PEG tube placement on this admission Enteral Feeds -Weight 44.1kg -as per filler and trimmer 10/08/2019 estimates that optimal PEG tube feeds with Peptamen 1.5 and goal rate of 45 ml/hr if feeding are to run for 24 hours (24 hour feeds would give estimated 1620 kcals, 70 to 75 grams of protein, 205 grams of carbohydrates, 825 ml of free water) -multivitamin daily and thiamine daily started on 10/09/2019 -10/09/2019 revised filler and trimmer recommendations that since patient able to tolerate the minced, moist diet with meals that PEG tube feeds only need to be overnight on a 12 hour period as Peptamen 1.5 and goal rate of 70 ml/hr (12 hour feeds would give estimated 1250 kcals, 60 grams of protein, 160 grams of carbohydrates, 650 ml of free water) -10/10/2019 continue as inpatient to titrate to goal PEG feed rate -10/11/2019: Overnight patient's PEG feeds were at 50 ml/hr and plans to increase to 70 ml/hr tonight. -09/11/2020: Overnight, patient's PEG feeds at goal of 70 ml/hr over a 12 hour period. Patient made bowel movements. No abdomen pain. No vomiting. no nausea. no chest pain. no shortness of breath. on room air. no dizziness. no lightheadedness. no chest pain. 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 Patient made bowel movements. No abdomen pain. No vomiting. no nausea. no chest pain. no shortness of breath. on room air. no dizziness. no lightheadedness. no chest pain. discussed with patient about discharge to care of daughter for transfer to [facility] Review of Systems Review of Systems: All systems reviewed & are unremarkable except as noted in HPI & below Physical Exam Constitutional: comfortable Eyes: PERRL, conjunctivae normal, anicteric sclerae EOM intact bilaterally ENMT: external ear and nose normal, oropharynx normal Neck: normal visual inspection Respiratory: normal respiratory effort, lungs clear to auscultation Cardiovascular: Rate/Rhythm: regular rate and regular rhythm Gastrointestinal (Abdomen): Inspection/Auscultation: normal bowel sounds Percussion/Palpation: abdomen soft (PEG tube in place) Musculoskeletal: Head/Neck/Chest: normocephalic and head atraumatic Neurologic: PERRL, EOMI, accommodation nl, no face palsy, no dysarthria Psychiatric: Orientation: alert and cooperative Results & Data Vital Signs (Past 12 Hours) Vital Signs Temp Pulse Resp BP BP Pulse Ox 10/12/19 07:04 37.5 C 78 16 117/48 L 95 10/12/19 00:45 37.3 C 80 16 126/62 95
--- NOTE | 2019-10-12 08:18 | Discharge Summary ---
Date of Service October 12, 2019 Admission HPI Per Admitting Provider This is an 89-year-old male with significant PMH of hypothyroidism, CKD stage III baseline creatinine 1.7, anemia who presents to [facility] for elective EGD secondary to abnormal outpatient CT scan abdomen pelvis concerning for esophageal mass. Patient is a direct admission from GI service secondary to abnormal findings on EGD. 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 Plan per GI is esophageal stent placement plus or minus PEG tomorrow, 10/07/2019. Overall patient feels, "okay." "I cannot eat anything. ""I am only 90 pounds." He states over the past several months he has been having dysphasia with solid foods and 20 pound weight loss. This along with a new anemia was investigated and found to have abnormal CT scan of abdomen pelvis. Overall has poor appetite. Is able to tolerate liquids without difficulty. Denies fever, chills, sweats, lightheadedness, dizziness, chest pain, shortness of breath, nausea, vomiting, abdominal pain, change in bowel or urinary habits, melena, hematochezia. Admission Exam Per Admitting Provider Constitutional: Thin, cachectic, elderly, male, lying in bed, vitals as above, NAD, conversing easily Head: Normocephalic, Atraumatic, b/l temporal wasting Eyes: PERRL, conjunctivae normal, anicteric sclerae ENMT: external ear and nose normal, oropharynx dry mucous membranes Neck: trachea midline, no thyromegaly normal visual inspection Respiratory: normal respiratory effort, lungs clear to auscultation, no wheeze, rales, rhonchi. 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, s/p EGD with stent and PEG tube placement on this admission, Adult failure to thrive, Anemia, CKD (chronic kidney disease) stage 3, GFR 30-59 ml/min, Hypothyroidism, Hypophosphatemia Discharge Exam Constitutional comfortable Eyes PERRL, conjunctivae normal, anicteric sclerae EOM intact bilaterally ENMT external ear and nose normal, oropharynx normal Neck normal visual inspection Respiratory normal respiratory effort, lungs clear to auscultation Cardiovascular Rate/Rhythm: regular rate and regular rhythm Gastrointestinal (Abdomen) Inspection/Auscultation: normal bowel sounds Percussion/Palpation: abdomen soft (PEG tube in place) Musculoskeletal Head/Neck/Chest: normocephalic and head atraumatic Neurologic PERRL, EOMI, accommodation nl, no face palsy, no dysarthria Psychiatric Orientation: alert and cooperative Discharge Data Allergies Allergy/AdvReac Type Severity Reaction Status Date / Time No Known Allergies Allergy Verified 10/06/19 09:22 Consultations 10/06/19 11:43 Consult Gastroenterology Routine 10/06/19 11:45 Consult Case Management - Discharge Planning Routine 10/08/19 16:40 Consult Oncology Routine Procedures Performed Operation Date: 10/06/19 10:00 Actual Procedures p EGD Biopsy Cytology - Jennifer Easley MD Operation Date: 10/07/19 07:30 Actual Procedures p Esophagogastroduodenoscopy(Not Applicable) - Jennifer Easley MD s PEG Tube Placement and Stent Placement(Not Applicable) - Jennifer Easley MD Ordered Studies 10/07/19 13:00 FL esophageal dilatation Routine Hospital Course (1) Esophageal mass: 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 for elective EGD secondary to abnormal outpatient CT scan abdomen pelvis concerning for esophageal mass. Patient is a direct admission from GI service secondary to abnormal findings on EGD. 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 -s/p EGD with stent and peg tube placement and biopsy of the esophageal mass on this admission -ESOPHAGUS, TUMOR, BIOPSY: INVASIVE ADENOCARCINOMA, MODERATELY DIFFERENTIATED HER2 IMMUNOSTAINING RESULTS: EQUIVOCAL (SCORE 2+) HER2 FISH: pending upcoming scheduled appointments 10/15/2019 1:00 PM Provider Santiago Mooney MD Department Internal Medicine [facility] 10/23/2019 2:00 PM Provider Jennifer Easley MD Department Gastroenterology, [facility] Hospitalist has contacted Dr. Rigo Dubose of Oncology clinic at [address] [place] [address] to coordinate clinic appointment with patient (2) Adult failure to thrive: s/p PEG tube placement on this admission Enteral Feeds -Weight 44.1kg -as per curriculum assistant principal 10/08/2019 estimates that optimal PEG tube feeds with Peptamen 1.5 and goal rate of 45 ml/hr if feeding are to run for 24 hours (24 hour feeds would give estimated 1620 kcals, 70 to 75 grams of protein, 205 grams of carbohydrates, 825 ml of free water) -multivitamin daily and thiamine daily started on 10/09/2019 -10/09/2019 revised curriculum assistant principal recommendations that since patient able to tolerate the minced, moist diet with meals that PEG tube feeds only need to be overnight on a 12 hour period as Peptamen 1.5 and goal rate of 70 ml/hr (12 hour feeds would give estimated 1250 kcals, 60 grams of protein, 160 grams of carbohydrates, 650 ml of free water) -10/10/2019 continue as inpatient to titrate to goal PEG feed rate -10/11/2019: Overnight patient's PEG feeds were at 50 ml/hr and plans to increase to 70 ml/hr tonight. -09/11/2020: Overnight, patient's PEG feeds at goal of 70 ml/hr over a 12 hour period. Patient made bowel movements. No abdomen pain. No vomiting. no nausea. no chest pain. no shortness of breath. on room air. no dizziness. no lightheadedness. no chest pain. 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, s/p EGD with stent and PEG tube placement on this admission, Adult failure to thrive, Anemia, CKD (chronic kidney disease) stage 3, GFR 30-59 ml/min, Hypothyroidism, Hypophosphatemia Total Time Total Time Spent Total Time Spent (In Minutes): 40 minutes Total Time Includes: Examination of the Patient, Discharge Planning, Medication Reconciliation and Communication With Other Providers Discharge Plan Discharge Items Patient Disposition: Transfer Inpatient Rehab Fac Reason For Visit: ESOPHAGEAL MASS, FAILURE TO THRIVE Discharge Diagnosis: 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, s/p EGD with stent and PEG tube placement on this admission, Adult failure to thrive, Anemia, CKD (chronic kidney disease) stage 3, GFR 30-59 ml/min, Hypothyroidism, Hypophosphatemia Condition on Discharge: Good Activity: Per Instructions section Non-emergency contact: Primary Care Provider, Sprinkling System Irrigator and Oncologist Call non-emergency contact if: you have any medication questions Follow-up/Referrals: Santiago Mooney MD [Primary Care Provider] - Diet: Regular Diet Comment: minced, moist diet as tolerated Addtl Attending Provider Instructions: discharge to [facility] for physical rehabilitation and further retirement care 10/15/2019 1:00 PM Provider Santiago Mooney MD Department Internal Medicine [facility] 10/23/2019 2:00 PM Provider Jennifer Easley MD Department Gastroenterology, [facility] Hospitalist has contacted Dr. Rigo Dubose of Oncology clinic at [address] , [place] [address] to coordinate clinic appointment with patient Addtl Ingot Supervisor Provider Instructions: since patient able to tolerate the minced, moist diet with meals that PEG tube feeds only need to be overnight on a 12 hour period as Peptamen 1.5 (12 hour feeds would give estimated 1250 kcals, 60 grams of protein, 160 grams of carbohydrates, 650 ml of free water) Discharge medication sent electronically to [facility] [address] [id number] which is the pharmacy utilized by Aggie Canales Pending Studies at Discharge: Yes Studies:: ESOPHAGUS, TUMOR, BIOPSY: INVASIVE ADENOCARCINOMA, MODERATELY DIFFERENTIATED HER2 IMMUNOSTAINING RESULTS: EQUIVOCAL (SCORE 2+) HER2 FISH: pending Stand-Alone Forms: My [facility] Skilled Items Patient informed of condition?: Yes DNR: No Discharge Level of Care: Skilled Communicable Disease: No Discharge Prognosis: Stable Lines: None Urinary Catheter: No Medications and DC Order Prescriptions: New multivitamin [Daily-Gayle] Tablet 1 tab PO QAM 30 Days Qty: 30 RF: 0 pantoprazole 40 mg Tablet,Delayed Release (Dr/Ec) 40 mg PO QAM 30 Days Qty: 30 RF: 0 thiamine HCl (vitamin B1) [Vitamin B-1] 50 mg Tablet 50 mg PO QAM 30 Days Qty: 30 RF: 0 Continued levothyroxine 50 mcg Capsule 50 mcg PO QAM RF: 0 Discontinued multivitamin Tablet,Chewable 1 tab PO QPM RF: 0 Discharge Orders: Discharge Order (Routine); Ordered 10/12/19 Ordered By: Jewel Cabrera Admission Data Admit Date/Time: 10/06/19 11:43 Attending Provider: Jewel Cabrera Admit Provider: Champ Mendiola Primary Care Provider: Santiago Mooney Other Providers: Champ Mendiola ; Jennifer Easley ; [facility] ; Rigo Dubose Other Interventions: Discharge Summary Assessment (RN) Last Done: 10/06/19 12:03
[2019-10-12] MEDS: PANTOprazole 40 MG TAB PO SCH (08:35)
[2019-10-12] MEDS: MULTIVITAMIN TAB PO SCH (08:35)
[2019-10-12] MEDS: THIAMINE HCL 50 MG TABLET PO SCH (08:35)
== END 2019-10-12 12:37 | DRG 374 ==
LOC: ENDO 09:01 → 3N 11:43 → SUATTDRO 11:43